=== PATIENT | male | born 2000 | race Caucasian/White ===

== ENCOUNTER 2022-01-24 11:43 | Emergency (ER) | payer OTHER ==
[~2022-01-24] VITALS: Ht 188 cm; Wt 90.7 kg
== END 2022-01-24 14:31 | disposition left against medical advice (07) ==
LOC: ER 11:43 → EMR PED 11:43
DX: I86.1 Scrotal varices (principal); N43.3 Hydrocele, unspecified; Z88.0 Allergy status to penicillin; Z91.030 Bee allergy status